=== PATIENT | female | born 1950 | race Caucasian/White ===

== ENCOUNTER 2017-09-28 10:21 | Observation (INO) | payer MEDICARE ==
[~2017-09-28] VITALS: Ht 147.3 cm; Wt 72.0 kg
[~2017-09-28 10:21] MED LIST: ASPI-1264 PO; BRIM15DR8 OP; CHOL400T57 CORPAK; DILT180C66 PO; NITR4.1S2 TL; QUIN10TA PO
[2017-09-28] MEDS ORDERED: verapamil 2.5 mg/ml inj IV ONE (10:45)
[2017-09-28] MEDS ORDERED: aspirin 81mg tab.chew PO ONE (10:45)
[2017-09-28 11:01] LABS: BASOPHILS % (AUTO) 0.2 % (0-1); EOSINOPHILS # (AUTO) 0.2 X10'3 (0-0.9); HEMATOCRIT 44.9 % (35.0-45.0); HEMOGLOBIN 15.4 g/dl (12.0-16.0); LYMPHOCYTES # (AUTO) 1.9 X10'3 (1.1-4.8); LYMPHOCYTES % (AUTO) 21.5 % (21-51); MEAN CORPUSCULAR HEMOGLOBIN 31.3 PG (27.0-31.0); MEAN CORPUSCULAR HGB CONC 34.2 % (33.0-36.5); MEAN CORPUSCULAR VOLUME 91.5 FL (78-98); MEAN PLATELET VOLUME 7.8 FL (7.4-10.4); MONOCYTES # (AUTO) 0.6 X10'3 (0-0.9); MONOCYTES % (AUTO) 6.8 % (2-12); NEUTROPHILS # (AUTO) 6.2 X10'3 (1.8-7.7); NEUTROPHILS % (AUTO) 69.5 % (42-75); PLATELET COUNT 276 X10'3 (140-440); RED BLOOD COUNT 4.91 X10'6 (4.20-5.60); RED CELL DISTRIBUTION WIDTH 13.3 % (11.5-14.5); WHITE BLOOD COUNT 8.9 X10'3 (4.5-11.0)
[2017-09-28] MEDS ORDERED: diltiazem-NS 100mg/100ml 100 ML IV SCH (11:05)
[2017-09-28] MEDS ORDERED: normal saline 1000ML IV soln IVB ONE (11:10)
[2017-09-28 11:16] LABS: INR 0.9 INR; PROTHROMBIN TIME 9.7 SECONDS (9.0-12.0)
[2017-09-28 11:31] LABS: ALANINE AMINOTRANSFERASE 39 U/L (12-78); ALBUMIN 3.7 G/DL (3.4-5.0); ALBUMIN/GLOBULIN RATIO 0.9 (1.1-1.5); ALKALINE PHOSPHATASE 114 IU/L (46-116); ANION GAP 10 (8-16); ASPARTATE AMINO TRANSFERASE 24 U/L (10-37); BILIRUBIN,TOTAL 0.5 MG/DL (0.1-1.0); BLOOD UREA NITROGEN 17 MG/DL (7-18); BUN/CREATININE RATIO 21.8 (6.6-38.0); CALCIUM 8.9 MG/DL (8.5-10.1); CHLORIDE 105 MMOL/L (99-107); CREATININE 0.78 MG/DL (0.40-0.90); GLUCOSE 166 MG/DL (70-104); SODIUM 140 MMOL/L (135-145); TOTAL CARBON DIOXIDE 25.4 MMOL/L (24-32); TOTAL PROTEIN 7.6 G/DL (6.4-8.2); eGFR 73 ML/MIN
[2017-09-28] MEDS ORDERED: ATOR20TA66 PO (11:34)
[2017-09-28] MEDS ORDERED: DOCU100C41 PO (11:35)
[2017-09-28] MEDS ORDERED: FERR325T32 PO (11:35)
[2017-09-28] MEDS ORDERED: LACT1CAP65 PO (11:36)
[2017-09-28] MEDS ORDERED: HYDR-4070 PO (11:36)
[2017-09-28] MEDS ORDERED: MAGN400O6 PO (11:37)
[2017-09-28] MEDS ORDERED: PANT-47 PO (11:37)
[2017-09-28] MEDS ORDERED: QUIN10TA PO (11:38)
[2017-09-28] MEDS ORDERED: HYDROcodone/acetaminophen 10/325mg tab PO PRN (12:35)
[2017-09-28] MEDS ORDERED: acetaminophen 325mg tablet PO PRN ×2 (12:35)
[2017-09-28] MEDS ORDERED: HYDROcodone/acetaminophen 5mg/325mg tablet PO PRN (12:35)
[2017-09-28] MEDS ORDERED: magnesium hydroxide 30ml (MOM) UD suspension PO PRN (12:35)
[2017-09-28] MEDS ORDERED: ondansetron/PF 4mg/2ml inj IV PRN (12:35)
[2017-09-28] MEDS ORDERED: mag hydrox/Alum hydrox/simeth 30ml oral suspension PO PRN (12:35)
[2017-09-28] MEDS: diltiazem CD 180mg cap (once-daily) PO SCH (14:29)
[2017-09-28] MEDS ORDERED: lisinopril 20mg tablet PO SCH (20:00)
[2017-09-28] MEDS: hydrALAZINE 25 MG tablet PO SCH (20:17)
[2017-09-28] MEDS ORDERED: docusate sod 100mg capsule PO SCH (21:00)
[2017-09-29] MEDS: hydrALAZINE 25 MG tablet PO SCH (03:21)
[2017-09-29 06:26] LABS: BASOPHILS % (AUTO) 0.5 % (0-1); EOSINOPHILS # (AUTO) 0.3 X10'3 (0-0.9); HEMATOCRIT 40.1 % (35.0-45.0); HEMOGLOBIN 13.9 g/dl (12.0-16.0); LYMPHOCYTES # (AUTO) 2.1 X10'3 (1.1-4.8); LYMPHOCYTES % (AUTO) 24.5 % (21-51); MEAN CORPUSCULAR HEMOGLOBIN 31.8 PG (27.0-31.0); MEAN CORPUSCULAR HGB CONC 34.7 % (33.0-36.5); MEAN CORPUSCULAR VOLUME 91.8 FL (78-98); MEAN PLATELET VOLUME 8.3 FL (7.4-10.4); MONOCYTES # (AUTO) 0.6 X10'3 (0-0.9); MONOCYTES % (AUTO) 7.2 % (2-12); NEUTROPHILS # (AUTO) 5.6 X10'3 (1.8-7.7); NEUTROPHILS % (AUTO) 64.8 % (42-75); PLATELET COUNT 250 X10'3 (140-440); RED BLOOD COUNT 4.36 X10'6 (4.20-5.60); RED CELL DISTRIBUTION WIDTH 13.5 % (11.5-14.5); WHITE BLOOD COUNT 8.6 X10'3 (4.5-11.0)
[2017-09-29 06:44] LABS: ALBUMIN 3.2 G/DL (3.4-5.0); ANION GAP 11 (8-16); BLOOD UREA NITROGEN 19 MG/DL (7-18); BUN/CREATININE RATIO 24.1 (6.6-38.0); CHLORIDE 108 MMOL/L (99-107); CREATININE 0.79 MG/DL (0.40-0.90); GLUCOSE 126 MG/DL (70-104); SODIUM 141 MMOL/L (135-145); TOTAL CARBON DIOXIDE 22.5 MMOL/L (24-32); eGFR 72 ML/MIN
[2017-09-29 06:47] LABS: POTASSIUM 4.6 MMOL/L (3.5-5.1)
[2017-09-29 07:09] LABS: HEMOGLOBIN A1C 6.1 % (4.5-6.2)
[2017-09-29] MEDS ORDERED: DILT180C66 PO (07:51)
[2017-09-29] MEDS ORDERED: cholecalciferol (vitamin D) 400 unit tablet CORPAK SCH (08:00)
[2017-09-29] MEDS ORDERED: aspirin 325mg tablet PO SCH (08:00)
[2017-09-29] MEDS ORDERED: ferrous sulfate 325mg tablet PO SCH (08:00)
[2017-09-29] MEDS ORDERED: enoxaparin 40mg/0.4ml syringe SQ SCH (08:00)
[2017-09-29] MEDS ORDERED: pantoprazole 40mg Tablet.DR PO SCH (08:00)
[2017-09-29] MEDS ORDERED: lactobacillus rhamnosus 10,000 MMU CELLS/CAPSULE PO SCH (08:00)
[2017-09-29] MEDS ORDERED: atorvastatin 20mg tablet PO SCH (08:00)
[2017-09-29] MEDS: diltiazem CD 180mg cap (once-daily) PO SCH (08:29)
[2017-09-29 09:18] VITALS: BP 145/65
== END 2017-09-29 09:18 | disposition home or self-care (01) ==
LOC: ER 10:22 → ED HOLD 12:33
PROVIDERS: ADMIT Internal Medicine; ATTEND Internal Medicine
DX: I48.91 Unspecified atrial fibrillation (principal); I48.92 Unspecified atrial flutter; I20.9 Angina pectoris, unspecified; I10 Essential (primary) hypertension; E11.9 Type 2 diabetes mellitus without complications; E78.5 Hyperlipidemia, unspecified; G47.30 Sleep apnea, unspecified; N39.0 Urinary tract infection, site not specified; B96.20 Unspecified Escherichia coli [E. coli] as the cause of diseases classified elsewhere; Z87.11 Personal history of peptic ulcer disease
CPT/HCPCS: 36415; 71045; 80048; 80053; 83036; 83880; 84484; 85025; 85610; 96365; 96366; 96375; 99285; A6449; G0378; J3490; J7030; 93005

== ENCOUNTER 2018-02-09 08:31 | Emergency (ER) | payer MEDICARE ==
[~2018-02-09] VITALS: Ht 147.3 cm; Wt 77.0 kg
[~2018-02-09 08:31] MED LIST changes: +ATOR20TA66 PO; -BRIM15DR8 OP; +DILT180C10 PO; -DILT180C66 PO; -NITR4.1S2 TL; +PANT40TA4 PO
[2018-02-09] MEDS ORDERED: morphine 4 MG/ML inj SYRINge IV ONE (09:05)
[2018-02-09 09:43] LABS: BASOPHILS % (AUTO) 0.2 % (0-1); EOSINOPHILS # (AUTO) 0.5 X10'3 (0-0.9); EOSINOPHILS % (AUTO) 5.7 % (0-6); HEMATOCRIT 43.8 % (35.0-45.0); HEMOGLOBIN 14.8 g/dl (12.0-16.0); LYMPHOCYTES % (AUTO) 21.5 % (21-51); MEAN CORPUSCULAR HEMOGLOBIN 30.9 PG (27.0-31.0); MEAN CORPUSCULAR HGB CONC 33.7 % (33.0-36.5); MEAN CORPUSCULAR VOLUME 91.6 FL (78-98); MEAN PLATELET VOLUME 7.8 FL (7.4-10.4); MONOCYTES # (AUTO) 0.4 X10'3 (0-0.9); MONOCYTES % (AUTO) 4.2 % (2-12); NEUTROPHILS # (AUTO) 6.3 X10'3 (1.8-7.7); NEUTROPHILS % (AUTO) 68.4 % (42-75); PLATELET COUNT 285 X10'3 (140-440); RED BLOOD COUNT 4.78 X10'6 (4.20-5.60); RED CELL DISTRIBUTION WIDTH 13.3 % (11.5-14.5); WHITE BLOOD COUNT 9.2 X10'3 (4.5-11.0)
[2018-02-09 09:56] LABS: ALANINE AMINOTRANSFERASE 32 U/L (12-78); ALBUMIN 3.5 G/DL (3.4-5.0); ALBUMIN/GLOBULIN RATIO 0.9 (1.1-1.5); ALKALINE PHOSPHATASE 124 IU/L (46-116); ANION GAP 5 (8-16); ASPARTATE AMINO TRANSFERASE 17 U/L (10-37); BILIRUBIN,TOTAL 0.7 MG/DL (0.1-1.0); BLOOD UREA NITROGEN 13 MG/DL (7-18); CHLORIDE 103 MMOL/L (99-107); CREATININE 0.81 MG/DL (0.40-0.90); GLUCOSE 140 MG/DL (70-104); POTASSIUM 4.2 MMOL/L (3.5-5.1); SODIUM 138 MMOL/L (135-145); TOTAL PROTEIN 7.4 G/DL (6.4-8.2); eGFR 70 ML/MIN
[2018-02-09 10:40] VITALS: BP 180/79
== END 2018-02-09 10:20 | disposition home or self-care (01) ==
LOC: ER 08:32
DX: T82.199A Other mechanical complication of unspecified cardiac device, initial encounter (principal); S20.212A Contusion of left front wall of thorax, initial encounter; I10 Essential (primary) hypertension; I25.10 Atherosclerotic heart disease of native coronary artery without angina pectoris; E78.00 Pure hypercholesterolemia, unspecified; E11.9 Type 2 diabetes mellitus without complications; Z86.73 Personal history of transient ischemic attack (TIA), and cerebral infarction without residual deficits; Z79.82 Long term (current) use of aspirin; X58.XXXA Exposure to other specified factors, initial encounter; Y93.89 Activity, other specified; Y92.89 Other specified places as the place of occurrence of the external cause; Y99.8 Other external cause status
CPT/HCPCS: 36415; 71045; 76881; 80053; 85025; 93005; 99285

== ENCOUNTER 2019-10-01 01:02 | Emergency (ER) | payer MEDICARE ==
[~2019-10-01] VITALS: Ht 147.3 cm; Wt 77.3 kg
[2019-10-01] MEDS ORDERED: acetaminophen 325mg tablet PO ONE (02:20)
[2019-10-01 03:19] VITALS: BP 180/95
== END 2019-10-01 03:31 | disposition home or self-care (01) ==
LOC: ER 01:03
DX: S06.0X0A Concussion without loss of consciousness, initial encounter (principal); M25.552 Pain in left hip; M25.551 Pain in right hip; I25.10 Atherosclerotic heart disease of native coronary artery without angina pectoris; E78.00 Pure hypercholesterolemia, unspecified; I10 Essential (primary) hypertension; E11.9 Type 2 diabetes mellitus without complications; Z86.73 Personal history of transient ischemic attack (TIA), and cerebral infarction without residual deficits; Z79.82 Long term (current) use of aspirin; Z79.899 Other long term (current) drug therapy; W18.39XA Other fall on same level, initial encounter; Y93.01 Activity, walking, marching and hiking; Y92.89 Other specified places as the place of occurrence of the external cause; Y99.8 Other external cause status
CPT/HCPCS: 70450; 72125; 72170; 72192; 99285

== ENCOUNTER 2021-06-04 08:34 | Day surgery (SDC) | payer MEDICARE ==
[~2021-06-04] VITALS: Ht 147.3 cm; Wt 63.0 kg
[~2021-06-04 08:34] MED LIST changes: -PANT40TA4 PO; +PANT40TA54 PO
[2021-06-04] MEDS ORDERED: MIDAZolam 1 MG/ML 5ML VIAL ONE (08:47)
[2021-06-04] MEDS ORDERED: fentaNYL/PF 50MCG/1 ML 2ML syringe ONE (08:47)
[2021-06-04 08:50] VITALS: BP 155/75
[2021-06-04] MEDS ORDERED: LIDOcaine Viscous 15ml cup ONE (09:07)
[2021-06-04] MEDS ORDERED: APIX5TAB3 PO (09:15)
[2021-06-04 09:46] VITALS: BP 154/76
[2021-06-04 09:56] VITALS: BP 159/79
[2021-06-04 10:06] VITALS: BP 157/91
[2021-06-04 10:16] VITALS: BP 166/73
== END 2021-06-04 10:30 | disposition home or self-care (01) ==
LOC: GI LAB 08:34
PROVIDERS: ATTEND Internal Medicine Gastroenterology
DX: D50.9 Iron deficiency anemia, unspecified (principal); R10.12 Left upper quadrant pain; R12 Heartburn; K58.9 Irritable bowel syndrome, unspecified; K44.9 Diaphragmatic hernia without obstruction or gangrene; K22.89 Other specified disease of esophagus; K31.7 Polyp of stomach and duodenum; K31.89 Other diseases of stomach and duodenum; K20.80 Other esophagitis without bleeding; I10 Essential (primary) hypertension; E11.9 Type 2 diabetes mellitus without complications; Z86.73 Personal history of transient ischemic attack (TIA), and cerebral infarction without residual deficits; F17.210 Nicotine dependence, cigarettes, uncomplicated; Z79.899 Other long term (current) drug therapy
CPT/HCPCS: 43239; 45378; 88305; 99153; G0500; J2250; J3010; J7040; Z7512; 99152

== ENCOUNTER 2021-06-15 16:48 | Emergency (ER) | payer MEDICARE ==
[~2021-06-15] VITALS: Ht 147.3 cm; Wt 65.9 kg
[~2021-06-15 16:48] MED LIST changes: +APIX5TAB3 PO
[2021-06-15 18:20] VITALS: BP 168/72
[2021-06-15] MEDS ORDERED: TETanus/Pertussis (Acell)/Diphther VAC/PF (Tdap-Adult) 0.5ml syringe IMVAC ONE (19:40)
== END 2021-06-15 20:33 | disposition home or self-care (01) ==
LOC: ER 16:49
DX: S61.012A Laceration without foreign body of left thumb without damage to nail, initial encounter (principal); I25.10 Atherosclerotic heart disease of native coronary artery without angina pectoris; E78.00 Pure hypercholesterolemia, unspecified; I10 Essential (primary) hypertension; E11.9 Type 2 diabetes mellitus without complications; Z86.73 Personal history of transient ischemic attack (TIA), and cerebral infarction without residual deficits; Z79.01 Long term (current) use of anticoagulants; Z79.82 Long term (current) use of aspirin; Z79.899 Other long term (current) drug therapy; W26.9XXA Contact with unspecified sharp object(s), initial encounter; Y93.89 Activity, other specified; Y92.89 Other specified places as the place of occurrence of the external cause; Y99.8 Other external cause status
CPT/HCPCS: 90471; 90715; 99283

== ENCOUNTER 2022-04-21 07:45 | Inpatient (IN) | payer MEDICARE ==
[2022-04-13 17:04] LABS: BASOPHILS # (AUTO) 0.1 X10'3 (0-0.2); BASOPHILS % (AUTO) 0.6 % (0-1); EOSINOPHILS # (AUTO) 0.3 X10'3 (0-0.9); EOSINOPHILS % (AUTO) 2.7 % (0-6); LYMPHOCYTES # (AUTO) 2.3 X10'3 (1.1-4.8); LYMPHOCYTES % (AUTO) 22.3 % (21-51); MEAN CORPUSCULAR HEMOGLOBIN 27.1 PG (27.0-31.0); MEAN CORPUSCULAR HGB CONC 33.2 g/dL (33.0-36.5); MEAN CORPUSCULAR VOLUME 81.6 FL (78-98); MEAN PLATELET VOLUME 7.7 FL (7.4-10.4); MONOCYTES # (AUTO) 0.6 X10'3 (0-0.9); MONOCYTES % (AUTO) 5.9 % (2-12); NEUTROPHILS % (AUTO) 68.5 % (42-75); PRE OP HEMATOCRIT 35.1 % (35.0-45.0); PRE OP HEMOGLOBIN 11.7 g/dL (12.0-16.0); PRE OP PLATELET COUNT 395 X10'3 (140-440); RED BLOOD COUNT 4.29 X10'6 (4.20-5.60); RED CELL DISTRIBUTION WIDTH 16.4 % (11.5-14.5)
[2022-04-13 17:15] LABS: ALBUMIN 3.7 G/DL (3.4-5.0); ALBUMIN/GLOBULIN RATIO 0.9 (1.1-1.5); ALKALINE PHOSPHATASE 104 IU/L (46-116); BLOOD UREA NITROGEN 18 MG/DL (7-18); BUN/CREATININE RATIO 16.4 (6.6-38.0); CALCIUM 9.1 MG/DL (8.5-10.1); CHLORIDE 101 MMOL/L (99-107); HEMOGLOBIN A1C 7.9 % (4.5-6.2); PRE OP ALT 26 U/L (30-65); PRE OP ANION GAP 9 (8-16); PRE OP AST 22 U/L (10-37); PRE OP BILIRUB, TOTAL 0.3 MG/DL (0.0-1.0); PRE OP GLUCOSE 92 MG/DL (70-104); PRE OP POTASSIUM 3.4 MMOL/L (3.4-5.1); PRE OP SODIUM 139 MMOL/L (135-145); TOTAL CARBON DIOXIDE 29.5 MMOL/L (24-32); TOTAL PROTEIN 7.7 G/DL (6.4-8.2); eGFR 49 ML/MIN
[~2022-04-21] VITALS: Ht 147.3 cm; Wt 71.2 kg
[2022-04-21] VITALS (23 sets, daily range): BP systolic 119–168; BP diastolic 35–86
[~2022-04-21 07:45] MED LIST changes: +ACET-2006 PO; -ASPI-1264 PO; +ASPI-611 PO; -DILT180C10 PO; +DILT180T11 PO; +DULO30CA52 PO; +HYDR-4069 PO; +HYDR25TA5 PO; +ISOS30TA84 PO; +METF-900 PO; +MULT-1085 PO; +PREVCR VG; -QUIN10TA PO; +QUIN40TA36 PO; +acetaminophen 325mg tablet PO ONE; +acetaminophen 325mg tablet PO PRN; +bisacodyl 10mg suppository rectal RC PRN; +ceFAZolin inj. 2,000 MG in dextrose 5%-water 100 ML IV ONE; +celeCOXIB 100mg capsule PO ONE; +diphenhydrAMINE 25mg capsule PO PRN; +famotidine 20mg tablet PO ONE; +gabapentin 300mg capsule PO ONE; +hydrALAZINE 25 MG tablet PO PRN; +magnesium hydroxide 30ml (MOM) UD suspension PO PRN; +metoclopramide 5 mg/ml inj IV ONE; +ondansetron/PF 4mg/2ml inj IV PRN; +oxyCODONE SR 10mg (sust. release) tab -2 tabs (20mg) PO ONE; +ringers solution, lacted 1,000 ML IV SCH; +tranexamic acid inj. 1,000 MG in normal saline IV soln 100ML IV ONE; +vancomycin/NS 1 GM in NS 250 ML IV ONE
[2022-04-21] MEDS: isosorbide mononitrate 30mg tab.SR.24H PO SCH (08:00)
[2022-04-21] MEDS: duloxetine 30mg CAPSULE.DR PO SCH (08:00)
[2022-04-21] MEDS: multivitamins, therapeutics tablet PO SCH (08:00)
[2022-04-21] MEDS: apixaban 5mg tablet PO SCH ×2 (08:00→20:22)
[2022-04-21] MEDS: estrogens, conjug. vaginal cream 45gm tube VG SCH (08:00)
[2022-04-21] MEDS: HYDROchlorothiazide 12.5mg capsule PO SCH (08:00)
[2022-04-21] MEDS ORDERED: vancomycin/NS 1 GM ADD-VANTAGE 250 ML IV SCH ×2 (08:00→21:00)
[2022-04-21] MEDS: ascorbic acid 500mg tablet PO SCH ×2 (08:00→20:22)
[2022-04-21] MEDS: atorvastatin 20mg tablet PO SCH (08:00)
[2022-04-21] MEDS ORDERED: ondansetron/PF 4mg/2ml inj IV PRN (10:00)
[2022-04-21] MEDS ORDERED: morphine 4 MG/ML inj SYRINge IV PRN (10:00)
[2022-04-21] MEDS ORDERED: labetalol 20mg/4ml (5mg/ml) syringe IV PRN (10:00)
[2022-04-21] MEDS ORDERED: morphine 2 MG/ML inj. syringe IV PRN (10:00)
[2022-04-21] MEDS ORDERED: hydrALAZINE 20mg/ml inj. IV PRN (10:00)
[2022-04-21] MEDS ORDERED: ringers solution, lacted 1,000 ML IV SCH (10:00)
[2022-04-21] MEDS ORDERED: fentaNYL/PF 50MCG/1 ML 2ML syringe IV PRN ×2 (10:00)
[2022-04-21] MEDS ORDERED: cloNIDine hcl/PF 100mcg/ml inj ONE (10:41)
[2022-04-21] MEDS ORDERED: ROPIVAcaine 0.5% (5mg/ml) 30ml vial ONE (10:41)
[2022-04-21] MEDS ORDERED: vancomycin 1,000mg inj ONE (10:41)
[2022-04-21] MEDS ORDERED: ketorolac trometh. 30mg/ml inj. ONE (10:41)
[2022-04-21] MEDS ORDERED: epiNEPHrine 1 mg/ml inj ONE (10:41)
[2022-04-21] MEDS ORDERED: fentaNYL/PF 50MCG/1 ML 2ML syringe ONE (11:18)
[2022-04-21] MEDS ORDERED: MIDAZolam 1 MG/ML 5ML VIAL ONE (11:18)
--- NOTE | 2022-04-21 12:50 | NUR ---
Received from OR via HOSPITAL BED , accompanied by Anesthesiologist and report given by Anesthesiolgist. PT PRESENTS WITH PIV 20G LEFT HAND, HIP BRI DRESSING CDI WITH POWDER PACK, KNEE IMMOBILIZER, DISTAL PULSES MARKED, VSS. SENSATIONS T10
[2022-04-21] MEDS: potassium cl 20mEq in 1/2 NS 1,000 ML IV SCH ×2 (15:20→18:17)
[2022-04-21] MEDS: ceFAZolin/D5W- 1GM premix 50 ML IV SCH ×2 (16:00→18:18)
--- NOTE | 2022-04-21 17:00 | NUR ---
A&OX4, DENIES PAIN, V/S WNL, SCD ON, NEUROVASCULAR CHECKS INTACT, WITH PIV 20G LEFT HAND, HIP BRI DRESSING CDI WITH POWDER PACK, KNEE IMMOBILIZER, DISTAL PULSES MARKED, VSS. SENSATIONS T12. PATIENT TAKEN TO ROOM WITH ALL BELONGINGS AND HOOKED UP TO MONITORS IN ROOM AND GIVEN CALL LIGHT, REPORT GIVEN TO RN WHO HAS TAKEN OVER PATIENT CARE
--- NOTE | 2022-04-21 17:15 | NUR ---
Patient in room [facility]. I have received report from Chapincito MARQUEZ and had the opportunity to ask questions and assume patient care.
[2022-04-21] MEDS: pantoprazole 40mg Tablet.DR PO SCH (20:22)
[2022-04-21] MEDS: sennosides 8.6mg tablet PO SCH (20:22)
[2022-04-21] MEDS: HYDROcodone/acetaminophen 10/325mg tab PO PRN (20:41)
[2022-04-22] MEDS: potassium cl 20mEq in 1/2 NS 1,000 ML IV SCH ×4 (02:14→23:20)
[2022-04-22] MEDS: HYDROcodone/acetaminophen 10/325mg tab PO PRN ×5 (02:19→22:51)
--- NOTE | 2022-04-22 02:21 | NUR ---
POWDER PACK AND NORCO X2 FOR PAIN WITH GOOD EFFECT.
[2022-04-22 06:00] VITALS: BP 141/50
--- NOTE | 2022-04-22 06:34 | NUR ---
Problems reprioritized. Patient report given, questions answered & plan of care reviewed with daniel MARQUEZ.
--- NOTE | 2022-04-22 06:35 | NUR ---
Patient in room [facility]. I have received report from Debbie MARQUEZ and had the opportunity to ask questions and assume patient care.
[2022-04-22 07:08] LABS: BASOPHILS % (AUTO) 0.5 % (0-1); EOSINOPHILS # (AUTO) 0.1 X10'3 (0-0.9); EOSINOPHILS % (AUTO) 1.4 % (0-6); HEMATOCRIT 28.4 % (35.0-45.0); HEMOGLOBIN 9.2 g/dl (12.0-16.0); LYMPHOCYTES % (AUTO) 12.9 % (21-51); MEAN CORPUSCULAR HEMOGLOBIN 26.6 PG (27.0-31.0); MEAN CORPUSCULAR HGB CONC 32.3 g/dL (33.0-36.5); MEAN CORPUSCULAR VOLUME 82.3 FL (78-98); MEAN PLATELET VOLUME 7.7 FL (7.4-10.4); MONOCYTES # (AUTO) 0.6 X10'3 (0-0.9); MONOCYTES % (AUTO) 7.2 % (2-12); NEUTROPHILS # (AUTO) 6.1 X10'3 (1.8-7.7); PLATELET COUNT 275 X10'3 (140-440); RED BLOOD COUNT 3.45 X10'6 (4.20-5.60); RED CELL DISTRIBUTION WIDTH 16.6 % (11.5-14.5); WHITE BLOOD COUNT 7.9 X10'3 (4.5-11.0)
[2022-04-22 07:53] LABS: ANION GAP 6 (8-16); CHLORIDE 105 MMOL/L (99-107); POTASSIUM 4.1 MMOL/L (3.5-5.1); SODIUM 138 MMOL/L (135-145); TOTAL CARBON DIOXIDE 26.8 MMOL/L (24-32)
[2022-04-22] MEDS: estrogens, conjug. vaginal cream 45gm tube VG SCH (08:00)
[2022-04-22] MEDS: multivitamins, therapeutics tablet PO SCH (08:56)
[2022-04-22] MEDS: aspirin 81mg, enteric-coated 1 TAB TABLET.DR PO SCH (08:56)
[2022-04-22] MEDS: HYDROchlorothiazide 12.5mg capsule PO SCH (08:57)
[2022-04-22] MEDS: apixaban 5mg tablet PO SCH ×2 (08:57→22:50)
[2022-04-22] MEDS: isosorbide mononitrate 30mg tab.SR.24H PO SCH (08:57)
[2022-04-22] MEDS: ascorbic acid 500mg tablet PO SCH ×2 (08:57→22:50)
[2022-04-22] MEDS: diltiazem CD 180mg cap (once-daily) PO SCH (08:57)
[2022-04-22] MEDS: atorvastatin 20mg tablet PO SCH (08:57)
[2022-04-22] MEDS: duloxetine 30mg CAPSULE.DR PO SCH (08:58)
[2022-04-22] MEDS: lisinopril 20mg tablet PO SCH (08:58)
--- NOTE | 2022-04-22 09:28 | NUR ---
Diabetes consult: Pt w/ hx of DM A1c 7.9 per EMR. Pt also s/p L hip arthroplasty this admit. Provided pt w/ written and verbal DM and High protein diet education w/ RD contact info. Addendum: 04/22/22 at [address] Amended: Links added.
--- NOTE | 2022-04-22 10:37 | NUR ---
MOBILE HEALTH VEHICLE OPERATOR documentation: I have reviewed and agree with all interventions, assessments performed and documented by EMILY COPE. See assessment for changes in what i did not agree with.
[2022-04-22 11:00] VITALS: BP 158/58
[2022-04-22 14:48] LABS: HEMATOCRIT 28.2 % (35.0-45.0); HEMOGLOBIN 9.2 g/dl (12.0-16.0); MEAN CORPUSCULAR HEMOGLOBIN 27.1 PG (27.0-31.0); MEAN CORPUSCULAR HGB CONC 32.7 g/dL (33.0-36.5); MEAN CORPUSCULAR VOLUME 82.7 FL (78-98); MEAN PLATELET VOLUME 7.2 FL (7.4-10.4); PLATELET COUNT 283 X10'3 (140-440); RED BLOOD COUNT 3.41 X10'6 (4.20-5.60); RED CELL DISTRIBUTION WIDTH 16.4 % (11.5-14.5); WHITE BLOOD COUNT 10.4 X10'3 (4.5-11.0)
[2022-04-22 15:01] LABS: ALANINE AMINOTRANSFERASE 25 U/L (12-78); ALBUMIN 2.6 G/DL (3.4-5.0); ALBUMIN/GLOBULIN RATIO 0.9 (1.1-1.5); ALKALINE PHOSPHATASE 64 IU/L (46-116); ASPARTATE AMINO TRANSFERASE 41 U/L (10-37); BILIRUBIN,TOTAL 0.5 MG/DL (0.1-1.0); BLOOD UREA NITROGEN 16 MG/DL (7-18); BUN/CREATININE RATIO 19.5 (6.6-38.0); CREATININE 0.82 MG/DL (0.40-0.90); GLUCOSE 138 MG/DL (70-104); TOTAL PROTEIN 5.6 G/DL (6.4-8.2); eGFR 68 ML/MIN
[2022-04-22 18:00] VITALS: BP 137/65
--- NOTE | 2022-04-22 18:27 | NUR ---
Problems reprioritized. Patient report given, questions answered & plan of care reviewed with Porsche MARQUEZ.
[2022-04-22] MEDS: sennosides 8.6mg tablet PO SCH (20:32)
[2022-04-22 22:00] VITALS: BP 148/61
[2022-04-22] MEDS: pantoprazole 40mg Tablet.DR PO SCH (22:50)
[2022-04-22] MEDS: metFORMIN 500mg tablet PO SCH (22:50)
[2022-04-23] MEDS: HYDROcodone/acetaminophen 10/325mg tab PO PRN ×2 (05:32→13:51)
--- NOTE | 2022-04-23 05:48 | NUR ---
noted pt has been out of bed multiple times to get to BSC. tolerated well - stand by assist. pt will go home to and she requests a BSC to assist with voiding. pt states she has a walker already. premedicated for physical therapy. will caution use of blood pressure medications this am to not drop patient's blood pressure. pt doing well at breathing through pain and not holding breath while she is moving.
[2022-04-23 06:00] VITALS: BP 152/56
[2022-04-23] MEDS ORDERED: metFORMIN 500mg tablet PO SCH (07:00)
[2022-04-23] MEDS: duloxetine 30mg CAPSULE.DR PO SCH (07:41)
[2022-04-23] MEDS: ascorbic acid 500mg tablet PO SCH ×2 (07:41→19:47)
[2022-04-23] MEDS: HYDROchlorothiazide 12.5mg capsule PO SCH (07:41)
[2022-04-23] MEDS: diltiazem CD 180mg cap (once-daily) PO SCH (07:41)
[2022-04-23] MEDS: multivitamins, therapeutics tablet PO SCH (07:41)
[2022-04-23] MEDS: metFORMIN 500mg tablet PO SCH ×2 (07:41→17:24)
[2022-04-23] MEDS: atorvastatin 20mg tablet PO SCH (07:41)
[2022-04-23] MEDS: isosorbide mononitrate 30mg tab.SR.24H PO SCH (07:42)
[2022-04-23] MEDS: lisinopril 20mg tablet PO SCH (07:42)
[2022-04-23] MEDS: apixaban 5mg tablet PO SCH ×2 (07:42→19:47)
[2022-04-23] MEDS: aspirin 81mg, enteric-coated 1 TAB TABLET.DR PO SCH (07:48)
[2022-04-23 07:52] LABS: BASOPHILS % (AUTO) 0.2 % (0-1); EOSINOPHILS # (AUTO) 0.3 X10'3 (0-0.9); EOSINOPHILS % (AUTO) 2.1 % (0-6); HEMATOCRIT 30.9 % (35.0-45.0); HEMOGLOBIN 9.6 g/dl (12.0-16.0); LYMPHOCYTES # (AUTO) 0.7 X10'3 (1.1-4.8); MEAN CORPUSCULAR HEMOGLOBIN 25.8 PG (27.0-31.0); MEAN CORPUSCULAR VOLUME 83.2 FL (78-98); MONOCYTES # (AUTO) 0.8 X10'3 (0-0.9); MONOCYTES % (AUTO) 6.8 % (2-12); NEUTROPHILS # (AUTO) 10.2 X10'3 (1.8-7.7); NEUTROPHILS % (AUTO) 84.9 % (42-75); PLATELET COUNT 304 X10'3 (140-440); RED BLOOD COUNT 3.71 X10'6 (4.20-5.60); RED CELL DISTRIBUTION WIDTH 16.5 % (11.5-14.5)
[2022-04-23 08:00] VITALS: BP_SYST 138; BP_SYST 146; BP_SYST 152; BP_DIAS 55; BP_DIAS 56; BP_DIAS 58
[2022-04-23 08:03] LABS: ALANINE AMINOTRANSFERASE 49 U/L (12-78); ALBUMIN 2.6 G/DL (3.4-5.0); ALBUMIN/GLOBULIN RATIO 0.7 (1.1-1.5); ALKALINE PHOSPHATASE 97 IU/L (46-116); ANION GAP 11 (8-16); ASPARTATE AMINO TRANSFERASE 70 U/L (10-37); BILIRUBIN,TOTAL 0.7 MG/DL (0.1-1.0); BLOOD UREA NITROGEN 11 MG/DL (7-18); BUN/CREATININE RATIO 13.1 (6.6-38.0); CALCIUM 8.6 MG/DL (8.5-10.1); CHLORIDE 100 MMOL/L (99-107); CREATININE 0.84 MG/DL (0.40-0.90); GLUCOSE 231 MG/DL (70-104); POTASSIUM 3.4 MMOL/L (3.5-5.1); SODIUM 135 MMOL/L (135-145); TOTAL CARBON DIOXIDE 23.7 MMOL/L (24-32); TOTAL PROTEIN 6.6 G/DL (6.4-8.2); eGFR 66 ML/MIN
[2022-04-23 10:00] VITALS: BP 122/54
[2022-04-23] MEDS: estrogens, conjug. vaginal cream 45gm tube VG SCH (10:51)
[2022-04-23 18:00] VITALS: BP 121/49
--- NOTE | 2022-04-23 18:36 | NUR ---
Patient in room [facility]. I have received report from Preston and had the opportunity to ask questions and assume patient care.
--- NOTE | 2022-04-23 18:45 | NUR ---
Paged Dr. Castro regarding patients K level; Patient Lola Lugo rm [id number]. Regarding K 3.4 needing protocol for replacement please. Nurse; Karen [id number]
[2022-04-23] MEDS ORDERED: potassium Cl 40MEQ/1/2NS 520ml 520 ML IV PRN (18:50)
[2022-04-23] MEDS ORDERED: potassium Cl 20 mEq SR tablet PO PRN (18:50)
[2022-04-23] MEDS: K and/or MAG REPLACEMENT MC SCH (19:38)
[2022-04-23] MEDS: pantoprazole 40mg Tablet.DR PO SCH (19:47)
[2022-04-23] MEDS: sennosides 8.6mg tablet PO SCH (19:48)
[2022-04-23] MEDS: potassium Cl 20 mEq SR tablet PO PRN ×2 (19:48→23:23)
[2022-04-23 20:00] VITALS: BP_SYST 135; BP_SYST 140; BP_SYST 144; BP_DIAS 49; BP_DIAS 50; BP_DIAS 52
--- NOTE | 2022-04-23 20:00 | NUR ---
Patient is refusing to get out of bed for toilet use. Requests to "not use walker tonight" and wants the bedpan. I educated her that it is beneficial to get up, but she refused. Using bedpan instead.
[2022-04-23 22:00] VITALS: BP 144/50
[2022-04-24] MEDS: potassium Cl 20 mEq SR tablet PO PRN (03:03)
[2022-04-24 06:00] VITALS: BP 109/71
--- NOTE | 2022-04-24 06:09 | NUR ---
Problems reprioritized. Patient report given, questions answered & plan of care reviewed with Preston.
--- NOTE | 2022-04-24 06:54 | NUR ---
REVIEWED SECURITY INVESTIGATOR ASSESSMENT AND IN AGREEMENT.
[2022-04-24 07:14] VITALS: BP_SYST 150; BP_SYST 151; BP_SYST 162; BP_DIAS 52; BP_DIAS 60; BP_DIAS 70
[2022-04-24] MEDS: atorvastatin 20mg tablet PO SCH (07:26)
[2022-04-24] MEDS: multivitamins, therapeutics tablet PO SCH (07:26)
[2022-04-24] MEDS: isosorbide mononitrate 30mg tab.SR.24H PO SCH (07:26)
[2022-04-24] MEDS: metFORMIN 500mg tablet PO SCH ×2 (07:26→17:49)
[2022-04-24] MEDS: ascorbic acid 500mg tablet PO SCH ×2 (07:27→20:07)
[2022-04-24] MEDS: lisinopril 20mg tablet PO SCH (07:27)
[2022-04-24] MEDS: apixaban 5mg tablet PO SCH ×2 (07:27→20:07)
[2022-04-24] MEDS: diltiazem CD 180mg cap (once-daily) PO SCH (07:27)
[2022-04-24] MEDS: aspirin 81mg, enteric-coated 1 TAB TABLET.DR PO SCH (07:27)
[2022-04-24] MEDS: duloxetine 30mg CAPSULE.DR PO SCH (07:27)
[2022-04-24] MEDS: estrogens, conjug. vaginal cream 45gm tube VG SCH (07:28)
[2022-04-24] MEDS: HYDROchlorothiazide 12.5mg capsule PO SCH (07:28)
[2022-04-24] MEDS: K and/or MAG REPLACEMENT MC SCH ×2 (07:29→20:00)
[2022-04-24] MEDS: HYDROcodone/acetaminophen 10/325mg tab PO PRN ×2 (07:32→13:52)
[2022-04-24 08:24] LABS: BASOPHILS % (AUTO) 0.1 % (0-1); EOSINOPHILS # (AUTO) 0.3 X10'3 (0-0.9); EOSINOPHILS % (AUTO) 3.1 % (0-6); HEMATOCRIT 27.2 % (35.0-45.0); HEMOGLOBIN 8.7 g/dl (12.0-16.0); LYMPHOCYTES # (AUTO) 0.8 X10'3 (1.1-4.8); LYMPHOCYTES % (AUTO) 7.9 % (21-51); MEAN CORPUSCULAR HEMOGLOBIN 26.5 PG (27.0-31.0); MEAN CORPUSCULAR VOLUME 82.7 FL (78-98); MEAN PLATELET VOLUME 7.7 FL (7.4-10.4); MONOCYTES # (AUTO) 0.7 X10'3 (0-0.9); MONOCYTES % (AUTO) 6.9 % (2-12); NEUTROPHILS # (AUTO) 7.9 X10'3 (1.8-7.7); PLATELET COUNT 293 X10'3 (140-440); RED BLOOD COUNT 3.29 X10'6 (4.20-5.60); RED CELL DISTRIBUTION WIDTH 16.3 % (11.5-14.5); WHITE BLOOD COUNT 9.6 X10'3 (4.5-11.0)
[2022-04-24 08:43] LABS: ALANINE AMINOTRANSFERASE 57 U/L (12-78); ALBUMIN 2.3 G/DL (3.4-5.0); ALBUMIN/GLOBULIN RATIO 0.5 (1.1-1.5); ALKALINE PHOSPHATASE 122 IU/L (46-116); ANION GAP 9 (8-16); ASPARTATE AMINO TRANSFERASE 47 U/L (10-37); BILIRUBIN,TOTAL 0.7 MG/DL (0.1-1.0); BLOOD UREA NITROGEN 12 MG/DL (7-18); BUN/CREATININE RATIO 15.4 (6.6-38.0); CALCIUM 8.6 MG/DL (8.5-10.1); CHLORIDE 100 MMOL/L (99-107); CREATININE 0.78 MG/DL (0.40-0.90); GLUCOSE 174 MG/DL (70-104); POTASSIUM 3.9 MMOL/L (3.5-5.1); SODIUM 134 MMOL/L (135-145); TOTAL CARBON DIOXIDE 25.5 MMOL/L (24-32); TOTAL PROTEIN 6.6 G/DL (6.4-8.2); eGFR 72 ML/MIN
[2022-04-24 10:00] VITALS: BP 134/45
[2022-04-24 18:00] VITALS: BP 141/56
--- NOTE | 2022-04-24 18:20 | NUR ---
Patient in room [facility]. I have received report from Preston and had the opportunity to ask questions and assume patient care.
[2022-04-24] MEDS: sennosides 8.6mg tablet PO SCH (20:07)
[2022-04-24] MEDS: pantoprazole 40mg Tablet.DR PO SCH (20:07)
[2022-04-24 22:00] VITALS: BP 143/55
[2022-04-25] MEDS: HYDROcodone/acetaminophen 10/325mg tab PO PRN ×3 (02:14→14:16)
--- NOTE | 2022-04-25 02:17 | NUR ---
reviewed and agree with INDUSTRIAL ECOLOGY TECHNICIAN assessment.
[2022-04-25 06:00] VITALS: BP 134/47
--- NOTE | 2022-04-25 06:11 | NUR ---
Problems reprioritized. Patient report given, questions answered & plan of care reviewed with Preston.
[2022-04-25 06:28] LABS: BASOPHILS % (AUTO) 0.4 % (0-1); EOSINOPHILS # (AUTO) 0.5 X10'3 (0-0.9); EOSINOPHILS % (AUTO) 5.7 % (0-6); HEMATOCRIT 25.7 % (35.0-45.0); HEMOGLOBIN 8.5 g/dl (12.0-16.0); LYMPHOCYTES # (AUTO) 1.1 X10'3 (1.1-4.8); LYMPHOCYTES % (AUTO) 11.8 % (21-51); MEAN CORPUSCULAR HEMOGLOBIN 27.2 PG (27.0-31.0); MEAN CORPUSCULAR HGB CONC 32.9 g/dL (33.0-36.5); MEAN CORPUSCULAR VOLUME 82.7 FL (78-98); MEAN PLATELET VOLUME 7.9 FL (7.4-10.4); MONOCYTES # (AUTO) 0.6 X10'3 (0-0.9); NEUTROPHILS % (AUTO) 75.1 % (42-75); PLATELET COUNT 324 X10'3 (140-440); RED BLOOD COUNT 3.11 X10'6 (4.20-5.60); RED CELL DISTRIBUTION WIDTH 15.9 % (11.5-14.5); WHITE BLOOD COUNT 9.3 X10'3 (4.5-11.0)
[2022-04-25 06:45] LABS: ALANINE AMINOTRANSFERASE 42 U/L (12-78); ALBUMIN 2.3 G/DL (3.4-5.0); ALBUMIN/GLOBULIN RATIO 0.6 (1.1-1.5); ALKALINE PHOSPHATASE 133 IU/L (46-116); ASPARTATE AMINO TRANSFERASE 30 U/L (10-37); BILIRUBIN,TOTAL 0.5 MG/DL (0.1-1.0); BLOOD UREA NITROGEN 14 MG/DL (7-18); BUN/CREATININE RATIO 17.9 (6.6-38.0); CALCIUM 8.8 MG/DL (8.5-10.1); CREATININE 0.78 MG/DL (0.40-0.90); GLUCOSE 167 MG/DL (70-104); TOTAL CARBON DIOXIDE 25.6 MMOL/L (24-32); TOTAL PROTEIN 6.4 G/DL (6.4-8.2); eGFR 72 ML/MIN
[2022-04-25 07:40] LABS: ANION GAP 9 (8-16); CHLORIDE 102 MMOL/L (99-107); POTASSIUM 3.6 MMOL/L (3.5-5.1); SODIUM 137 MMOL/L (135-145)
[2022-04-25] MEDS: HYDROchlorothiazide 12.5mg capsule PO SCH (07:53)
[2022-04-25] MEDS: apixaban 5mg tablet PO SCH (07:53)
[2022-04-25] MEDS: diltiazem CD 180mg cap (once-daily) PO SCH (07:53)
[2022-04-25] MEDS: isosorbide mononitrate 30mg tab.SR.24H PO SCH (07:53)
[2022-04-25] MEDS: ascorbic acid 500mg tablet PO SCH (07:53)
[2022-04-25] MEDS: aspirin 81mg, enteric-coated 1 TAB TABLET.DR PO SCH (07:53)
[2022-04-25 07:54] VITALS: BP_SYST 134
[2022-04-25] MEDS: atorvastatin 20mg tablet PO SCH (07:54)
[2022-04-25] MEDS: duloxetine 30mg CAPSULE.DR PO SCH (07:54)
[2022-04-25] MEDS: lisinopril 20mg tablet PO SCH (07:54)
[2022-04-25] MEDS: metFORMIN 500mg tablet PO SCH (07:54)
[2022-04-25] MEDS: multivitamins, therapeutics tablet PO SCH (07:54)
[2022-04-25] MEDS: estrogens, conjug. vaginal cream 45gm tube VG SCH (07:55)
[2022-04-25] MEDS: K and/or MAG REPLACEMENT MC SCH (08:00)
--- NOTE | 2022-04-25 15:35 | NUR ---
AGER ID: [id number] MESSAGE: please call re discharge concern for Josephine Lugo [id number] thank you Preston MARQUEZ
--- NOTE | 2022-04-25 16:43 | NUR ---
patient discharge medical reason for visit is incorrect, currently states she was here for lacerated thumb no foreign body. Current visit is for L hip arthroplasty. MD KOCH notifed of error. No changes made to paper work by , I am unable to modify on computer. Collaborated with internal audit senior manager Nicole, after discussion we made a plan for me to print and line out error and added correct medical visit reason to send with patient. Also provided paper copy to patient chart to reflect changes I made in writing.
== END 2022-04-25 17:07 | disposition home or self-care (01) | DRG 470 ==
LOC: PAS IN 07:45 → SUR 3N 17:00
PROVIDERS: ADMIT Orthopaedic Surgery; ATTEND Orthopaedic Surgery
PROC: 0SRB06Z Replacement of Left Hip Joint with Oxidized Zirconium on Polyethylene Synthetic Substitute, Open Approach (ICD-10-PCS; principal; 2022-04-21 11:07)
DX: M16.12 Unilateral primary osteoarthritis, left hip (principal); I48.20 Chronic atrial fibrillation, unspecified; D62 Acute posthemorrhagic anemia; E78.5 Hyperlipidemia, unspecified; I49.5 Sick sinus syndrome; E11.9 Type 2 diabetes mellitus without complications; R42 Dizziness and giddiness; D64.9 Anemia, unspecified; I10 Essential (primary) hypertension; Z79.82 Long term (current) use of aspirin; Z86.73 Personal history of transient ischemic attack (TIA), and cerebral infarction without residual deficits; Z90.710 Acquired absence of both cervix and uterus; Z95.0 Presence of cardiac pacemaker; Z79.899 Other long term (current) drug therapy; Z82.49 Family history of ischemic heart disease and other diseases of the circulatory system
CPT/HCPCS: 36415; 72170; 80053; 82948; 83036; 85025; 85027; 86885; 86900; 86901; 87081; 93005; 97110; 97116; 97161; 97530; 97535; A4215; A4615; A4618; A7000; C1776; G0378; J0171; J0360; J0690; J0735; J1885; J2250; J2270; J2765; J2795; J3010; J3370; J3480; J3490; J7120

== ENCOUNTER 2025-02-13 08:30 | Outpatient (CLI) | payer MEDICARE, OTHER ==
[~2025-02-13 08:30] MED LIST changes: -HYDR-4069 PO; +HYDR25TA90 PO; -acetaminophen 325mg tablet PO ONE; -acetaminophen 325mg tablet PO PRN; -bisacodyl 10mg suppository rectal RC PRN; -ceFAZolin inj. 2,000 MG in dextrose 5%-water 100 ML IV ONE; -celeCOXIB 100mg capsule PO ONE; -diphenhydrAMINE 25mg capsule PO PRN; -famotidine 20mg tablet PO ONE; -gabapentin 300mg capsule PO ONE; -hydrALAZINE 25 MG tablet PO PRN; -magnesium hydroxide 30ml (MOM) UD suspension PO PRN; -metoclopramide 5 mg/ml inj IV ONE; -ondansetron/PF 4mg/2ml inj IV PRN; -oxyCODONE SR 10mg (sust. release) tab -2 tabs (20mg) PO ONE; -ringers solution, lacted 1,000 ML IV SCH; -tranexamic acid inj. 1,000 MG in normal saline IV soln 100ML IV ONE; -vancomycin/NS 1 GM in NS 250 ML IV ONE
[2025-02-13] MEDS ORDERED: iohexol 300mg/ml 100ml inj. ONE (08:50)
--- NOTE | 2025-02-13 10:27 | RADIOLOGY REPORT ---
EXAM: CT CT ABDOMEN PELVIS W/WO IV CONTRAST HISTORY: NEOPLASM OF BLADDER/KIDNEY, history of breast cancer, hypertension, diabetes mellitus type 2. COMPARISON: None TECHNIQUE: Helical CT images of the abdomen and pelvis were performed with and without 100 mL Omnipaque 300 contrast. Sagittal and coronal reformatted images were obtained. This CT exam was performed using one or more of the following dose reduction techniques: Automated exposure control, adjustment of the mA and/or kV according to patient size, or use of iterative reconstruction technique. Radiation Dose: CT Abdomen/Pelvis: CTDIvol 17.36 mGy, DLP 1847.23 mGy*cm. FINDINGS: CT abdomen: There is interstitial prominence in the lung bases. There is peribronchial thickening in the lung bases. The heart is enlarged. There are coronary artery calcifications. There is a partially visualized pacemaker. There is a small sliding hiatal hernia. There are bilateral renal cortical simple cysts, the largest of which is in the left renal inferior pole. The liver measures 19 cm longitudinal. The spleen, pancreas, and adrenal glands are unremarkable. No abdominal aortic aneurysm or dissection. There are thick atherosclerotic calcifications of the abdominal aorta and major branches, with estimated 50% stenosis of the bilateral renal artery origins. There is a left upper quadrant splenule. CT pelvis: No abnormal bowel dilatation, free air, free fluid, or suspicious adenopathy. There is fecal retention throughout the colon. The appendix is not visualized, and there is no secondary evidence of acute appendicitis. Evaluation of the urinary bladder is severely limited by beam hardening artifact from bilateral total hip arthroplasties. There is moderate to severe lumbar degenerative disc disease and facet arthropathy. There are bridging syndesmophytes in the lower thoracic spine. IMPRESSION: 1. Cardiomegaly, coronary artery disease, and interstitial prominence in the lung bases which may be due to reactive airways disease, interstitial scarring, or mild CHF. 2. Mild hepatomegaly. 3. Postoperative changes of cholecystectomy, pacemaker, bilateral total hip arthroplasties, and possibly also appendectomy. 4. No evidence of malignancy involving the bilateral kidneys. Evaluation of the urinary bladder is severely limited secondary to beam hardening artifact from the bilateral total hip arthroplasties. 5. Atherosclerotic vascular disease with estimated 50% stenosis of the bilateral renal artery origins. 6. No evidence of bowel obstruction or other acute process in the abdomen or pelvis.
== END 2025-02-13 23:59 | disposition home or self-care (01) ==
LOC: RAD 08:30
PROVIDERS: ATTEND Specialist
DX: I51.7 Cardiomegaly (principal); D41.4 Neoplasm of uncertain behavior of bladder; D41.02 Neoplasm of uncertain behavior of left kidney; R16.0 Hepatomegaly, not elsewhere classified; I70.1 Atherosclerosis of renal artery; Z90.49 Acquired absence of other specified parts of digestive tract
CPT/HCPCS: 74178; Q9967

== ENCOUNTER 2025-04-05 10:11 | Emergency (ER) | payer MEDICARE, OTHER ==
[~2025-04-05] VITALS: Ht 147.3 cm; Wt 68.2 kg
[2025-04-05 10:36] VITALS: TEMP 98.7
--- NOTE | 2025-04-05 10:55 | ELECTROCARDIOGRAPH REPORT ---
[facility] Test Date: 2025-04-05 Test Time: 10:17:56 Pat Name: EVELYN HOWARD Department: EMERGENCY ROOM Room: Gender: F Contract Technical Writer: HELEN : 1950 Requested By: EITAN ISLAS Order Number: [id number] Reading MD: Dr. Eric Sher Measurements Intervals [place] Rate: 74 P: 0 WY: 290 QRS: -84 QRSD: 140 T: 89 QT: 445 QTc: 494 Interpretive Statements Atrial-sensed ventricular-paced rhythm No further analysis attempted due to paced rhythm Electronically Signed On 04-05-2025 18:50:[address] Eric Sher Please click the below link to view image of tracing.
[2025-04-05 10:58] LABS: MEAN PLATELET VOLUME 8.3 FL (7.4-10.4); RED CELL DISTRIBUTION WIDTH 14.7 % (11.5-14.5)
--- NOTE | 2025-04-05 11:05 | RADIOLOGY REPORT ---
CHEST RADIOGRAPH Indication: CP Technique: Single frontal view of the chest was obtained COMPARISON: DI CHEST,SINGLE VIEW on DOS: 02/03/23 FINDINGS: Lines and Tubes: Left chest pacemaker Lungs: Congestion Pleura: No effusion. No pneumothorax. Cardiomediastinal contours: Cardiomegaly Bones: Unremarkable IMPRESSION: Increased interstital prominence. This may represent pulmonary vascular congestion and/or viral pneumonia. Clinical correlation advised.
[2025-04-05 11:12] LABS: CREATININE 0.81 MG/DL (0.40-0.90); PRO BRAIN NATRIURETIC PEPTIDE 104 PG/ML (0-450); TOTAL CARBON DIOXIDE 31.8 MMOL/L (24-32); eCRCL 38 ML/MIN; eGFR 69 ML/MIN
--- NOTE | 2025-04-05 12:39 | Physician Documentation ---
Addendum CHIEF COMPLAINT/HPI: The patient is a 74-year-old female with a history of diabetes, hypertension, SVT, hyperlipidemia, obstructive sleep apnea, paroxysmal atrial fibrillation who had a 5 minute episode of palpitations this morning while watching television. She did not experience chest pain or shortness of breath. She has no symptoms at this time. REVIEW OF SYSTEMS: Constitutional: Denies chills, fatigue, fever, weight gain or weight loss. HEENT: Denies hearing loss, sinus pressure or visual changes. Respiratory: Denies cough, shortness of breath or wheezing. Cardiovascular: 5 minutes of palpitations this morning.. Gastrointestinal: Denies abdominal pain, blood in stool, constipation, diarrhe a, heartburn, loss of appetite, nausea or vomiting. Genitourinary: Denies painful urination (dysuria), excessive amount of urine (polyuria) or urinary frequency. Metabolic/Endocrine: Denies cold intolerance, heat intolerance, excessive thirst (polydipsia) or excessive hunger (polyphagia). Neurological: Denies dizziness, extremity numbness, extremity weakness, headaches, seizures or tremors. Psychiatric: Denies anxiety or depression. Integumentary: Denies breast discharge, breast lump, hives, mole change(s), rash or skin lesion. Musculoskeletal: Denies back pain, joint pain, joint swelling or neck pain. Hematologic: Denies easily bleeding, easily bruises, lymphedema or issues with blood clots. Immunologic: Denies food allergies or seasonal allergies. PHYSICAL EXAMINATION: Vitals and nursing note reviewed. Constitutional: General: Patient is awake, alert, oriented x 4 in no acute distress and well appearing. Speech is clear and lucid. Appearance: Normal appearance. Patient is not ill-appearing, toxic-appearing or diaphoretic. HENT: Head: Normocephalic and atraumatic. Mouth: Mucous membranes are moist. Pharynx: Oropharynx is clear. Eyes: General: No scleral icterus. Extraocular Movements: Extraocular movements intact. Pupils: Pupils are equal, round, and reactive to light. Neck: Supple, no Kernig or Brudzinski sign. Cardiovascular: Rate and Rhythm: Normal rate and regular rhythm. Heart sounds: No murmur heard. Pulmonary: Effort: No respiratory distress. Breath sounds: No wheezing, rhonchi or rales. Abdominal: General: There is no distension. Palpations: There is no fluid wave, hepatomegaly or mass. Tenderness: There is no abdominal tenderness. There is no guarding. Musculoskeletal: General: No swelling or deformity. Skin: Coloration: Skin is not jaundiced. Findings: No erythema or rash. Neurological: Mental Status: Patient is alert. EKG medically necessary in the evaluation of palpitations and interpreted by me at the time of patient evaluation. Rhythm is atrial sensed ventricular paced rhythm with a rate of 74. Impression: Abnormal EKG MEDICAL DECISION MAKING: This patient had an episode of palpitations this morning which was self-limited and lasted of approximately 5 minutes. She does have a history of SVT and AFib. She feels fine now going to discharge her in stable condition. Departure Disposition: 01 HOME / SELF CARE / HOMELESS Impression: Primary Impression: Palpitations Condition: Stable Additional Instructions: It is important to see your doctor or primary care provider. Emergency care may be incomplete without proper follow-up. Symptoms sometimes change or new symptoms might arise after you leave the emergency department. It is important that you call your doctor if you become worse in any way, or return to the emergency department. You are strongly urged to follow-up with your physician to assure complete and thorough care. Please call your doctor's office today, and informed them that you were seen in the emergency department, and that you need to be seen immediately for close follow-up. If you do not have a primary care doctor we encourage you to proactively seek a local physician for close follow-up. Consider local clinics, [facility], or local [facility]. Prior to discharge we spoke at length concerning symptoms that would merit reevaluation, but please return to the emergency department for any symptoms that are concerning to you, and we will be happy to continue your evaluation and treatment. Please note you can always return to the emergency department if you are having difficulty coordinating close follow-up. If medications were prescribed, you should fill them at your local pharmacy immediately and take only as prescribed. Bring your new medications to your doctors follow-up visit to discuss any changes that would be necessary. Please check [employer] for any results you did not receive in the Emergency Department: often we are unable to get all your tests back before you leave, and these tests need to be reviewed by your PCP and yourself. You can also call Medical Records if you are unable to access the internet to see [employer]. Return to the emergency department immediately for worsening chest pain, difficulty breathing, sweating, or other concerning emergent symptoms. Education Educated: Patient Educated regarding: diagnosis, prognosis, need for follow up EITAN ISLAS MD Apr 05, 2025 12:39
[2025-04-05 13:59] VITALS: BP 185/85; PULSE 66; RESP 16; O2SAT 97
== END 2025-04-05 14:05 | disposition home or self-care (01) ==
LOC: ER 10:11
DX: R00.2 Palpitations (principal); E11.9 Type 2 diabetes mellitus without complications; E78.5 Hyperlipidemia, unspecified; I10 Essential (primary) hypertension; G47.33 Obstructive sleep apnea (adult) (pediatric); I48.0 Paroxysmal atrial fibrillation; Z95.0 Presence of cardiac pacemaker
CPT/HCPCS: 36415; 71045; 80048; 83880; 84484; 85025; 93005; 99285